=== PATIENT | female | born 1985 | race Two or more races ===

== ENCOUNTER 2018-07-20 08:47 | Emergency (ER) | payer MEDICAID, OTHER ==
[~2018-07-20] VITALS: Ht 157.5 cm; Wt 48.5 kg
[2018-07-20 09:15] VITALS: BP 141/84
== END 2018-07-20 10:52 | disposition home or self-care (01) ==
LOC: ER 08:47
DX: F41.1 Generalized anxiety disorder (principal); R21 Rash and other nonspecific skin eruption